=== PATIENT | female | born 1935 | race Caucasian/White ===

== ENCOUNTER 2016-09-10 11:05 | Outpatient (RCR) | payer MEDICARE, OTHER ==
[2016-05-14 11:28] VITALS: BP 115/68
[~2016-09-10 11:05] MED LIST: LIPITOR20 M1 PO; LISINOPRIL-HYDR1 TA2 PO; NORVASC 5MG5 MG/TAB PO; RECLAST5 MG/1001 IV; TYLENOL 325MG325 MG PO; VITAMIN D35000 IU PO
[2016-09-12] MEDS ORDERED: ASPIRIN 32325 MG/TAB PO (10:11)
[2016-09-12] MEDS ORDERED: TRAMADOL 50 MG TAB PO (10:11)
[2016-09-12] MEDS ORDERED: PERCOCET 325 MG1 TA2 PO (10:50)
[2016-09-12] MEDS ORDERED: CYCLOBENZAPRINE10 M2 PO (10:50)
[2016-09-12] MEDS ORDERED: LIDODERM 5% PATC1 EA TP (10:52)
== END 2016-11-05 14:28 | disposition home or self-care (01) ==
LOC: PT 11:05
DX: M54.5 Low back pain (principal)
CPT/HCPCS: G0283-GP

== ENCOUNTER 2016-09-12 10:04 | Emergency (ER) | payer MEDICARE, OTHER ==
[2016-09-12] MEDS ORDERED: ASPIRIN 32325 MG/TAB PO (10:11)
[2016-09-12] MEDS ORDERED: TRAMADOL 50 MG TAB PO (10:11)
[2016-09-12] MEDS ORDERED: PERCOCET 325 MG1 TA2 PO (10:50)
[2016-09-12] MEDS ORDERED: CYCLOBENZAPRINE10 M2 PO (10:50)
[2016-09-12] MEDS ORDERED: LIDODERM 5% PATC1 EA TP (10:52)
== END 2016-09-12 11:00 | disposition home or self-care (01) ==
LOC: ED 10:04
DX: M54.42 Lumbago with sciatica, left side (principal); Z79.899 Other long term (current) drug therapy; Z79.82 Long term (current) use of aspirin

== ENCOUNTER → 2017-05-20 | Outpatient (CLI) | payer MEDICARE, OTHER ==
[~2017-05-20] VITALS: Wt 68.0 kg
[~2017-05-20] MED LIST changes: +ASPIRIN 32325 MG/TAB PO; +CYCLOBENZAPRINE10 M2 PO; +LIDODERM 5% PATC1 EA TP; +PERCOCET 325 MG1 TA2 PO; +TRAMADOL 50 MG TAB PO
[2017-05-20 10:07] VITALS: BP 144/68
== END ==
LOC: AMSURD 09:52
DX: I49.3 Ventricular premature depolarization (principal)

== ENCOUNTER 2017-09-12 17:37 | Emergency (ER) | payer MEDICARE, OTHER ==
[~2017-09-12] VITALS: Ht 157.5 cm; Wt 65.0 kg
[~2017-09-12 17:37] MED LIST changes: -ASPIRIN 32325 MG/TAB PO; +ASPIRIN E.C. 8181 MG PO
[2017-09-12] MEDS ORDERED: MACRODANTIN50 MG/CA1 PO (17:52)
[2017-09-12] MEDS ORDERED: TRIMPEX 100MG100 MG PO (17:53)
[2017-09-12 19:58] VITALS: BP 131/52
== END 2017-09-12 19:58 | disposition home or self-care (01) ==
LOC: ED 17:37
DX: S30.0XXA Contusion of lower back and pelvis, initial encounter (principal); W00.0XXA Fall on same level due to ice and snow, initial encounter; Y92.000 Kitchen of unspecified non-institutional (private) residence as the place of occurrence of the external cause; I10 Essential (primary) hypertension; M81.0 Age-related osteoporosis without current pathological fracture; M51.16 Intervertebral disc disorders with radiculopathy, lumbar region; M47.26 Other spondylosis with radiculopathy, lumbar region; Z79.82 Long term (current) use of aspirin

== ENCOUNTER 2017-09-21 11:08 | Emergency (ER) | payer MEDICARE, OTHER ==
[~2017-09-21] VITALS: Ht 157.5 cm; Wt 68.2 kg
[~2017-09-21 11:08] MED LIST changes: +MACRODANTIN50 MG/CA1 PO; +TRIMPEX 100MG100 MG PO
[2017-09-21] MEDS ORDERED: RECLAST5 MG/100 M IV (11:30)
[2017-09-21] MEDS ORDERED: TRAMADOL 50 MG TAB PO (11:31)
[2017-09-21 11:52] LABS: HEMATOCRIT 37.7 % (37.0-47.0); HEMOGLOBIN 12.3 g/dL (12.5-16.0); MEAN CELL VOLUME 90 fl (78-100); MEAN CORPUSCULAR HEMOGLOBIN 29 pg (27-31); MEAN CORPUSCULAR HGB CONC 33 g/dL (33-37); MEAN PLATELET VOLUME 10.8 fl (7.4-10.4); PLATELET COUNT 290 K/mm3 (130-400); RED BLOOD COUNT 4.21 M/mm3 (4.10-5.30); RED CELL DISTRIBUTION WIDTH 13.2 % (11.5-14.5); WHITE BLOOD COUNT 14.4 K/mm3 (4.8-10.8)
[2017-09-21 12:10] LABS: ALBUMIN 4.2 g/dL (3.5-5.0); BUN/CREATININE RATIO 32.4 (6.0-26.0); CALCIUM 10.8 mg/dL (8.4-10.2); POTASSIUM 4.3 mmol/L (3.6-5.0); TOTAL BILIRUBIN 0.2 mg/dL (0.2-1.3); TOTAL PROTEIN 7.4 g/dL (6.3-8.2)
[2017-09-21 12:17] LABS: CKMB ISOENZYME 2.4 ng/mL (0.6-3.5)
[2017-09-21 12:31] LABS: LYMPHOCYTE 5 % (20-51); MONOCYTE 7 % (3-10); NEUTROPHILS 88 % (42-75)
[2017-09-21 12:32] LABS: D-DIMER 0.28 mg/L FEU (0.15-0.50); TROPONIN-I < 0.03 ng/mL (0.00-0.06)
[2017-09-21 13:21] LABS: URINE APPEARANCE CLEAR; URINE BILIRUBIN NEGATIVE (NEGATIVE); URINE BLOOD NEGATIVE (NEGATIVE); URINE COLOR YELLOW; URINE GLUCOSE NEGATIVE (NEGATIVE); URINE KETONE NEGATIVE (NEGATIVE); URINE LEUKOCYTE ESTERASE NEGATIVE (NEGATIVE); URINE NITRATE NEGATIVE (NEGATIVE); URINE PROTEIN(semi-quant) NEGATIVE (NEGATIVE); URINE UROBILINOGEN NORMAL (NORMAL); URINE WBC 0-1 /hpf (0-3)
[2017-09-21 13:26] VITALS: BP 141/71
== END 2017-09-21 13:20 | disposition home or self-care (01) ==
LOC: ED 11:08
PROVIDERS: Physician Assistant
DX: R07.9 Chest pain, unspecified (principal); F41.9 Anxiety disorder, unspecified; F17.200 Nicotine dependence, unspecified, uncomplicated; R01.1 Cardiac murmur, unspecified; I10 Essential (primary) hypertension; Z79.82 Long term (current) use of aspirin

== ENCOUNTER → 2017-10-07 | Outpatient (CLI) | payer MEDICARE, OTHER ==
[2017-09-21 13:26] VITALS: BP 141/71
[~2017-10-07] MED LIST changes: +RECLAST5 MG/100 M IV
== END ==
LOC: RAD 12:00 → VAS 16:53
DX: I35.0 Nonrheumatic aortic (valve) stenosis (principal)

== ENCOUNTER → 2018-01-18 | Outpatient (CLI) | payer MEDICARE, OTHER ==
[~2018-01-18] VITALS: Ht 157.5 cm; Wt 67.3 kg
[~2018-01-18] MED LIST changes: +THERACRAN650 MG PO
[2018-01-18 10:48] LABS: BASO # 0.1 (0.02-0.10); EOS # 0.3 (0.04-0.40); EOS % 3.8 % (1.0-5.0); HEMATOCRIT 40.7 % (37.0-47.0); HEMOGLOBIN 12.8 g/dL (12.5-16.0); LYMPH# 1.2 (1.50-4.00); MEAN CELL VOLUME 91 fl (78-100); MEAN CORPUSCULAR HEMOGLOBIN 29 pg (27-31); MEAN CORPUSCULAR HGB CONC 31 g/dL (33-37); MEAN PLATELET VOLUME 10.8 fl (7.4-10.4); MONO # 0.8 (0.20-0.80); NEU # 5.2 (1.40-6.50); PLATELET COUNT 237 K/mm3 (130-400); RED BLOOD COUNT 4.48 M/mm3 (4.10-5.30); RED CELL DISTRIBUTION WIDTH 13.4 % (11.5-14.5); WHITE BLOOD COUNT 7.6 K/mm3 (4.8-10.8)
[2018-01-18 10:58] LABS: PROTHROMBIN TIME 9.6 SECONDS (9.0-12.0)
[2018-01-18 11:05] LABS: ALBUMIN 4.7 g/dL (3.5-5.0); BUN/CREATININE RATIO 23.7 (6.0-26.0); CALCIUM 10.3 mg/dL (8.4-10.2); POTASSIUM 4.1 mmol/L (3.6-5.0); TOTAL BILIRUBIN 0.4 mg/dL (0.2-1.3)
[2018-01-18 11:10] VITALS: BP 136/62
[2018-01-18 11:57] LABS: URINE APPEARANCE CLEAR; URINE BILIRUBIN NEGATIVE (NEGATIVE); URINE BLOOD NEGATIVE (NEGATIVE); URINE COLOR YELLOW; URINE GLUCOSE NEGATIVE (NEGATIVE); URINE KETONE NEGATIVE (NEGATIVE); URINE LEUKOCYTE ESTERASE 1+ (NEGATIVE); URINE NITRATE NEGATIVE (NEGATIVE); URINE PROTEIN(semi-quant) NEGATIVE (NEGATIVE); URINE UROBILINOGEN NORMAL (NORMAL)
== END ==
LOC: AMSURD 10:18
PROVIDERS: Orthopaedic Surgery
DX: Z01.818 Encounter for other preprocedural examination (principal); M17.0 Bilateral primary osteoarthritis of knee; R82.90 Unspecified abnormal findings in urine

== ENCOUNTER → 2018-02-04 | Outpatient (CLI) | payer MEDICARE, OTHER ==
[2018-01-18 11:10] VITALS: BP 136/62
[2018-02-04 09:41] LABS: EOS # 0.3 (0.04-0.40); EOS % 5.5 % (1.0-5.0); HEMATOCRIT 38.9 % (37.0-47.0); HEMOGLOBIN 12.6 g/dL (12.5-16.0); LYMPH# 1.1 (1.50-4.00); MEAN CELL VOLUME 89 fl (78-100); MEAN CORPUSCULAR HEMOGLOBIN 29 pg (27-31); MEAN CORPUSCULAR HGB CONC 32 g/dL (33-37); MEAN PLATELET VOLUME 10.7 fl (7.4-10.4); MONO # 0.5 (0.20-0.80); NEU # 3.4 (1.40-6.50); PLATELET COUNT 253 K/mm3 (130-400); RED BLOOD COUNT 4.38 M/mm3 (4.10-5.30); RED CELL DISTRIBUTION WIDTH 13.2 % (11.5-14.5); WHITE BLOOD COUNT 5.3 K/mm3 (4.8-10.8)
[2018-02-04 09:54] LABS: ALBUMIN 4.4 g/dL (3.5-5.0); BUN/CREATININE RATIO 17.6 (6.0-26.0); CALCIUM 10.1 mg/dL (8.4-10.2); POTASSIUM 4.4 mmol/L (3.6-5.0); TOTAL BILIRUBIN 0.2 mg/dL (0.2-1.3); TOTAL PROTEIN 7.5 g/dL (6.3-8.2)
[2018-02-04 09:59] LABS: URINE APPEARANCE HAZY; URINE COLOR YELLOW; URINE GLUCOSE NEGATIVE (NEGATIVE); URINE KETONE NEGATIVE (NEGATIVE); URINE PROTEIN(semi-quant) TRACE mg/dL (NEGATIVE)
[2018-02-04 10:00] LABS: URINE BILIRUBIN NEGATIVE (NEGATIVE); URINE BLOOD TRACE (NEGATIVE); URINE LEUKOCYTE ESTERASE 2+ (NEGATIVE); URINE MUCUS PRESENT (NOT PRESENT); URINE NITRATE NEGATIVE (NEGATIVE); URINE UROBILINOGEN NORMAL (NORMAL); URINE WBC 16-30 /hpf (0-3)
== END ==
LOC: LAB 09:28
PROVIDERS: Internal Medicine
DX: Z01.818 Encounter for other preprocedural examination (principal); M17.0 Bilateral primary osteoarthritis of knee; R82.90 Unspecified abnormal findings in urine; N39.0 Urinary tract infection, site not specified

== ENCOUNTER → 2018-02-11 | Outpatient (CLI) | payer MEDICARE, OTHER ==
[2018-01-18 11:10] VITALS: BP 136/62
== END ==
LOC: PT 01-28 14:27
DX: Z01.818 Encounter for other preprocedural examination (principal); M17.11 Unilateral primary osteoarthritis, right knee

== ENCOUNTER 2018-04-20 09:00 | Outpatient (RCR) | payer MEDICARE, OTHER ==
[2018-01-18 11:10] VITALS: BP 136/62
== END 2018-04-20 09:30 | disposition home or self-care (01) ==
LOC: PT 09:00
DX: Z47.1 Aftercare following joint replacement surgery (principal); Z96.651 Presence of right artificial knee joint
CPT/HCPCS: G8978-GP; G8979-GP

== ENCOUNTER → 2018-09-22 | Outpatient (CLI) | payer MEDICARE, OTHER ==
[2018-01-18 11:10] VITALS: BP 136/62
[2018-09-22 10:13] LABS: CALCIUM 10.5 mg/dL (8.4-10.2); POTASSIUM 4.4 mmol/L (3.6-5.0)
== END ==
LOC: LAB 09:35
PROVIDERS: Internal Medicine
DX: I10 Essential (primary) hypertension (principal)

== ENCOUNTER → 2018-10-27 | Outpatient (CLI) | payer MEDICARE, OTHER ==
[2018-01-18 11:10] VITALS: BP 136/62
== END ==
LOC: VAS 10-20 16:00 → RAD 10-20 16:00 → VAS 15:21
DX: I08.3 Combined rheumatic disorders of mitral, aortic and tricuspid valves (principal); I27.20 Pulmonary hypertension, unspecified

== ENCOUNTER → 2019-10-10 | Outpatient (CLI) | payer MEDICARE, OTHER ==
[2018-01-18 11:10] VITALS: BP 136/62
[2019-10-10 15:16] LABS: EOS # 0.1 (0.04-0.40); EOS % 2.1 % (1.0-5.0); HEMATOCRIT 38.9 % (37.0-47.0); HEMOGLOBIN 12.1 g/dL (12.5-16.0); MEAN CELL VOLUME 93 fl (78-100); MEAN CORPUSCULAR HEMOGLOBIN 29 pg (27-31); MEAN CORPUSCULAR HGB CONC 31 g/dL (33-37); MEAN PLATELET VOLUME 10.6 fl (7.4-10.4); MONO # 0.7 (0.20-0.80); NEU # 4.3 (1.40-6.50); PLATELET COUNT 241 K/mm3 (130-400); RED BLOOD COUNT 4.17 M/mm3 (4.10-5.30); RED CELL DISTRIBUTION WIDTH 13.8 % (11.5-14.5); WHITE BLOOD COUNT 6.2 K/mm3 (4.8-10.8)
[2019-10-10 15:32] LABS: ALBUMIN 4.4 g/dL (3.4-4.8); POTASSIUM 3.9 mmol/L (3.5-5.1)
[2019-10-10 15:33] LABS: CALCIUM 10.5 mg/dL (8.3-10.5)
[2019-10-10 15:35] LABS: TOTAL PROTEIN 7.1 g/dL (6.2-8.1)
[2019-10-10 15:36] LABS: TOTAL BILIRUBIN 0.3 mg/dL (0.2-1.2)
== END ==
LOC: LAB 15:01
PROVIDERS: Internal Medicine
DX: Z01.818 Encounter for other preprocedural examination (principal); M17.0 Bilateral primary osteoarthritis of knee; M65.9 Synovitis and tenosynovitis, unspecified; I10 Essential (primary) hypertension; R73.02 Impaired glucose tolerance (oral); R73.03 Prediabetes; R20.2 Paresthesia of skin

== ENCOUNTER → 2019-12-28 | Outpatient (CLI) | payer MEDICARE, OTHER ==
[2018-01-18 11:10] VITALS: BP 136/62
== END ==
LOC: VAS 15:15 → RAD 16:45
DX: I08.2 Rheumatic disorders of both aortic and tricuspid valves (principal)

== ENCOUNTER 2020-01-12 07:18 | Observation (INO) | payer MEDICARE, OTHER ==
[~2020-01-12] VITALS: Ht 157.5 cm; Wt 64.2 kg
[2020-01-12] MEDS ORDERED: MELOXICAM15 MG PO (07:32)
[2020-01-12 10:42] VITALS: BP 129/77
[2020-01-12 12:05] VITALS: BP 118/67
[2020-01-12 15:30] VITALS: BP 118/67
[2020-01-12 22:00] VITALS: BP 135/60
[2020-01-13 00:40] VITALS: BP 142/66
[2020-01-13 01:11] VITALS: BP 148/75
[2020-01-13 06:11] VITALS: BP 134/66
[2020-01-13] MEDS ORDERED: ATORVASTATIN CA20 MG PO (08:23)
[2020-01-13] MEDS ORDERED: LISINOPRIL AND1 TA1 PO (08:24)
[2020-01-13] MEDS ORDERED: TRAMADOL 50 MG TAB PO (08:37)
[2020-01-13] MEDS ORDERED: PREDNISONE20 MG PO (08:38)
[2020-01-13 10:12] VITALS: BP 153/70
== END 2020-01-13 11:00 | disposition home or self-care (01) ==
LOC: ED 07:18 → MED/SURG 10:27 → ED 10:30 → MED/SURG 01-13 11:00
PROVIDERS: ADMIT Nurse Practitioner Primary Care
DX: M47.26 Other spondylosis with radiculopathy, lumbar region (principal); I10 Essential (primary) hypertension; R73.03 Prediabetes; E78.5 Hyperlipidemia, unspecified; M10.9 Gout, unspecified; Z87.891 Personal history of nicotine dependence; Z79.899 Other long term (current) drug therapy
CPT/HCPCS: G0378; J1650; J2405; J3010; J3301; J7512

== ENCOUNTER 2020-01-15 15:39 | Emergency (ER) | payer MEDICARE, OTHER ==
[~2020-01-15 15:39] MED LIST changes: +ATORVASTATIN CA20 MG PO; +LISINOPRIL AND1 TA1 PO; +MELOXICAM15 MG PO; +PREDNISONE20 MG PO
[2020-01-15 16:36] VITALS: BP 139/61
== END 2020-01-15 16:00 | disposition other institution (70) ==
LOC: ED 15:39
DX: M54.16 Radiculopathy, lumbar region (principal); Z79.891 Long term (current) use of opiate analgesic

== ENCOUNTER 2020-01-15 16:00 | Inpatient (IN) | payer MEDICARE, OTHER ==
[~2020-01-15] VITALS: Ht 157.5 cm; Wt 64.2 kg
[2020-01-15 16:41] VITALS: BP 139/61
[2020-01-15 17:06] LABS: HEMATOCRIT 41.9 % (37.0-47.0); HEMOGLOBIN 13.5 g/dL (12.5-16.0); MEAN CELL VOLUME 88 fl (78-100); MEAN CORPUSCULAR HEMOGLOBIN 28 pg (27-31); MEAN CORPUSCULAR HGB CONC 32 g/dL (33-37); MEAN PLATELET VOLUME 11.2 fl (7.4-10.4); PLATELET COUNT 289 K/mm3 (130-400); RED BLOOD COUNT 4.76 M/mm3 (4.10-5.30); RED CELL DISTRIBUTION WIDTH 13.5 % (11.5-14.5)
[2020-01-15 17:09] LABS: ALBUMIN 4.6 g/dL (3.4-4.8); POTASSIUM 3.8 mmol/L (3.5-5.1); SODIUM 139 mmol/L (136-145)
[2020-01-15 17:10] LABS: CALCIUM 10.3 mg/dL (8.3-10.5)
[2020-01-15 17:11] LABS: GLUCOSE 139 mg/dL (65-105)
[2020-01-15 17:12] LABS: TOTAL PROTEIN 7.1 g/dL (6.2-8.1)
[2020-01-15 17:13] LABS: CARBON DIOXIDE 21 mmol/L (23-31); TOTAL BILIRUBIN 0.4 mg/dL (0.2-1.2)
[2020-01-15 17:17] LABS: AST-SGOT 15 U/L (5-34)
[2020-01-15 17:18] LABS: ALT/SGPT 20 U/L (0-55)
[2020-01-15 17:27] LABS: LYMPHOCYTE 7 % (20-51); MONOCYTE 11 % (3-10); NEUTROPHILS 82 % (42-75)
[2020-01-15 17:34] VITALS: BP 169/70
[2020-01-15 18:07] LABS: ERYTHROCYTE SEDIMENTATION RATE 4 mm/hr (0-30)
[2020-01-15 18:56] LABS: URINE APPEARANCE HAZY; URINE COLOR YELLOW
[2020-01-15 18:57] LABS: PH-URINE 6.5 (5.0 - 8.0); URINE BILIRUBIN NEGATIVE (NEGATIVE); URINE BLOOD TRACE (NEGATIVE); URINE GLUCOSE NEGATIVE (NEGATIVE); URINE KETONE NEGATIVE (NEGATIVE); URINE LEUKOCYTE ESTERASE TRACE (NEGATIVE); URINE NITRATE NEGATIVE (NEGATIVE); URINE PROTEIN(semi-quant) NEGATIVE (NEGATIVE); URINE UROBILINOGEN NORMAL (NORMAL)
[2020-01-15 22:14] VITALS: BP 154/81
[2020-01-16 01:31] VITALS: BP 136/75
[2020-01-16 05:45] VITALS: BP 127/71
[2020-01-16 10:05] VITALS: BP 130/62
[2020-01-16 13:47] VITALS: BP 133/73
[2020-01-16 17:23] VITALS: BP 133/73
[2020-01-16 21:33] VITALS: BP 127/75
[2020-01-17 01:16] VITALS: BP 117/69
[2020-01-17 06:04] VITALS: BP 119/69
[2020-01-17 10:08] VITALS: BP 150/71
[2020-01-17] MEDS ORDERED: CEFDINIR300 MG PO (11:35)
[2020-01-17] MEDS ORDERED: PREDNISONE10 MG PO (11:43)
[2020-01-17] MEDS ORDERED: MIRALAX17 GM PO (11:44)
== END 2020-01-17 13:22 | disposition home or self-care (01) | DRG 552 ==
LOC: MED/SURG 16:00
PROVIDERS: ADMIT Nurse Practitioner Primary Care
DX: M47.26 Other spondylosis with radiculopathy, lumbar region (principal); N39.0 Urinary tract infection, site not specified; I10 Essential (primary) hypertension; E78.5 Hyperlipidemia, unspecified; M10.9 Gout, unspecified; M19.90 Unspecified osteoarthritis, unspecified site; K59.00 Constipation, unspecified; R73.03 Prediabetes; Z79.891 Long term (current) use of opiate analgesic; Z79.52 Long term (current) use of systemic steroids; Z87.891 Personal history of nicotine dependence
CPT/HCPCS: A9585; J0696; J1100

== ENCOUNTER → 2020-02-12 | Outpatient (CLI) | payer MEDICARE, OTHER ==
[2020-01-17 10:08] VITALS: BP 150/71
[~2020-02-12] MED LIST changes: +CEFDINIR300 MG PO; +MIRALAX17 GM PO; +PREDNISONE10 MG PO
[2020-02-12 08:25] LABS: HEMATOCRIT 39.8 % (37.0-47.0); HEMOGLOBIN 12.8 g/dL (12.5-16.0); MEAN CELL VOLUME 88 fl (78-100); MEAN CORPUSCULAR HEMOGLOBIN 28 pg (27-31); MEAN CORPUSCULAR HGB CONC 32 g/dL (33-37); MEAN PLATELET VOLUME 9.8 fl (7.4-10.4); PLATELET COUNT 289 K/mm3 (130-400); RED BLOOD COUNT 4.55 M/mm3 (4.10-5.30); RED CELL DISTRIBUTION WIDTH 14.5 % (11.5-14.5); WHITE BLOOD COUNT 5.5 K/mm3 (4.8-10.8)
[2020-02-12 12:02] LABS: LYMPHOCYTE 10 % (20-51); MONOCYTE 8 % (3-10); NEUTROPHILS 76 % (42-75)
== END ==
LOC: LAB 08:12
DX: K59.00 Constipation, unspecified (principal)

== ENCOUNTER → 2020-04-02 | Outpatient (CLI) | payer MEDICARE, OTHER | LOC: RAD 06:43 | DX: M51.34 Other intervertebral disc degeneration, thoracic region (principal) ==

== ENCOUNTER → 2020-04-26 | Outpatient (CLI) | payer MEDICARE, OTHER ==
[2020-04-26 12:20] LABS: BASO # 0.1 (0.02-0.10); EOS # 0.2 (0.04-0.40); EOS % 2.6 % (1.0-5.0); HEMATOCRIT 39.6 % (37.0-47.0); HEMOGLOBIN 12.3 g/dL (12.5-16.0); MEAN CELL VOLUME 92 fl (78-100); MEAN CORPUSCULAR HEMOGLOBIN 29 pg (27-31); MEAN CORPUSCULAR HGB CONC 31 g/dL (33-37); MEAN PLATELET VOLUME 10.2 fl (7.4-10.4); MONO # 0.7 (0.20-0.80); NEU # 5.4 (1.40-6.50); PLATELET COUNT 305 K/mm3 (130-400); RED BLOOD COUNT 4.29 M/mm3 (4.10-5.30); RED CELL DISTRIBUTION WIDTH 13.5 % (11.5-14.5); WHITE BLOOD COUNT 7.3 K/mm3 (4.8-10.8)
[2020-04-26 12:27] LABS: URINE APPEARANCE CLEAR; URINE BILIRUBIN NEGATIVE (NEGATIVE); URINE BLOOD TRACE (NEGATIVE); URINE COLOR YELLOW; URINE GLUCOSE NEGATIVE (NEGATIVE); URINE KETONE NEGATIVE (NEGATIVE); URINE LEUKOCYTE ESTERASE 1+ (NEGATIVE); URINE NITRATE NEGATIVE (NEGATIVE); URINE PROTEIN(semi-quant) TRACE mg/dL (NEGATIVE); URINE UROBILINOGEN NORMAL (NORMAL)
[2020-04-26 12:31] LABS: PROTHROMBIN TIME 9.9 SECONDS (9.0-12.0)
[2020-04-26 12:54] LABS: ALBUMIN 4.5 g/dL (3.4-4.8); POTASSIUM 3.8 mmol/L (3.5-5.1)
[2020-04-26 12:55] LABS: CALCIUM 10.1 mg/dL (8.3-10.5)
[2020-04-26 12:56] LABS: TOTAL PROTEIN 7.3 g/dL (6.2-8.1)
[2020-04-26 12:58] LABS: TOTAL BILIRUBIN 0.3 mg/dL (0.2-1.2)
[2020-04-26 13:03] LABS: MAGNESIUM 1.96 mg/dL (1.60-2.60)
== END ==
LOC: LAB 12:00
PROVIDERS: Internal Medicine
DX: Z01.818 Encounter for other preprocedural examination (principal); M54.16 Radiculopathy, lumbar region

== ENCOUNTER → 2020-05-09 | Outpatient (CLI) | payer MEDICARE, OTHER | LOC: LAB 08:43 | DX: Z01.818 Encounter for other preprocedural examination (principal); M54.16 Radiculopathy, lumbar region; R79.1 Abnormal coagulation profile; Z20.828 Contact with and (suspected) exposure to other viral communicable diseases ==

== ENCOUNTER → 2020-05-10 | Outpatient (CLI) | payer MEDICARE, OTHER | LOC: CARDREHAB 09:29 → CARDLAB 11:41 | DX: Z01.818 Encounter for other preprocedural examination (principal); I44.7 Left bundle-branch block, unspecified | CPT/HCPCS: A9500 ==

== ENCOUNTER 2020-08-12 14:01 | Outpatient (RCR) | payer MEDICARE, OTHER | END 2020-08-12 14:31 | LOC: PT | DX: G89.18 Other acute postprocedural pain (principal); R20.0 Anesthesia of skin ==

== ENCOUNTER → 2020-11-14 | Outpatient (CLI) | payer MEDICARE, OTHER ==
[2020-11-14 13:06] LABS: MAGNESIUM 2.05 mg/dL (1.60-2.60)
[2020-11-14 22:44] LABS: FOLATE (FOLIC ACID) 16.5 ng/mL (7.0-31.4)
[2020-11-14 23:09] LABS: SYPHILIS AB SCREEN w REFLEX Negative (Negative)
[2020-11-15 13:08] LABS: ANA SCREEN with REFLEX Negative (Negative)
[2020-11-19 16:15] LABS: A/G RATIO (PEP) 1.08 (()); BETA GLOBULINS (PEP) 0.9 g/dL (0.7-1.2)
[2020-11-19 20:43] LABS: VITAMIN B1 172 nmol/L (70-180)
== END ==
LOC: LAB 08:12
PROVIDERS: Psychiatry & Neurology Neurology
DX: E61.1 Iron deficiency (principal); E55.9 Vitamin D deficiency, unspecified; G62.9 Polyneuropathy, unspecified; R73.02 Impaired glucose tolerance (oral); E53.9 Vitamin B deficiency, unspecified; E53.1 Pyridoxine deficiency; E53.8 Deficiency of other specified B group vitamins; E61.2 Magnesium deficiency

== ENCOUNTER → 2021-02-14 | Outpatient (CLI) | payer MEDICARE, OTHER | LOC: VAS 10:22 → RAD 11:00 | DX: I08.3 Combined rheumatic disorders of mitral, aortic and tricuspid valves (principal) ==

== ENCOUNTER 2022-02-01 17:26 | Emergency (ER) | payer MEDICARE, OTHER ==
[2022-02-01] MEDS ORDERED: DULOXETINE30 MG PO (17:37)
[2022-02-01] MEDS ORDERED: ROBAXIN 75750 MG/TA1 PO (17:37)
[2022-02-01] MEDS ORDERED: PREGABALIN50 MG PO (17:38)
[2022-02-01] MEDS ORDERED: PROTONIX TR40 M1 PO (17:38)
[2022-02-01] MEDS ORDERED: ESCITALOPRAM20 MG PO (17:39)
[2022-02-01] MEDS ORDERED: TRAMADOL 50 MG TAB PO (18:42)
[2022-02-01 18:52] VITALS: BP 97/57
== END 2022-02-01 18:52 | disposition home or self-care (01) ==
LOC: ED 17:26
DX: R07.81 Pleurodynia (principal); Z28.310 Unvaccinated for COVID-19; W01.0XXA Fall on same level from slipping, tripping and stumbling without subsequent striking against object, initial encounter; Y92.480 Sidewalk as the place of occurrence of the external cause

== ENCOUNTER 2022-04-19 02:11 | Emergency (ER) | payer MEDICARE, OTHER ==
[~2022-04-19] VITALS: Ht 157.5 cm; Wt 71.8 kg
[~2022-04-19 02:11] MED LIST changes: +DULOXETINE30 MG PO; +ESCITALOPRAM20 MG PO; +PREGABALIN50 MG PO; +PROTONIX TR40 M1 PO; +ROBAXIN 75750 MG/TA1 PO
[2022-04-19] MEDS ORDERED: NEURONTIN300 M1 PO (03:20)
[2022-04-19] MEDS ORDERED: NORCO 325 MG-51 TA1 PO (05:37)
[2022-04-19 06:03] VITALS: BP 158/58
== END 2022-04-19 06:04 | disposition home or self-care (01) ==
LOC: ED 02:11
DX: M79.662 Pain in left lower leg (principal); Z87.891 Personal history of nicotine dependence

== ENCOUNTER 2022-04-26 09:56 | Emergency (ER) | payer MEDICARE, OTHER ==
[~2022-04-26] VITALS: Wt 71.2 kg
[~2022-04-26 09:56] MED LIST changes: +NEURONTIN300 M1 PO; +NORCO 325 MG-51 TA1 PO
[2022-04-26 10:01] VITALS: BP 133/55
[2022-04-26 11:14] LABS: POTASSIUM 4.3 mmol/L (3.5-5.1)
[2022-04-26 11:15] LABS: CALCIUM 9.8 mg/dL (8.3-10.5)
[2022-04-26] MEDS ORDERED: NORCO 325 MG-51 TA1 PO (11:51)
== END 2022-04-26 11:59 | disposition home or self-care (01) ==
LOC: ED 09:56
PROVIDERS: Family Medicine
DX: S30.0XXA Contusion of lower back and pelvis, initial encounter (principal); R25.2 Cramp and spasm; Z28.310 Unvaccinated for COVID-19; W18.30XA Fall on same level, unspecified, initial encounter; Y92.89 Other specified places as the place of occurrence of the external cause